=== PATIENT | male | born 1960 | race African-American/Black ===

== ENCOUNTER 2021-01-19 22:56 | Emergency (ER) | payer OTHER | END 2021-01-20 00:14 | disposition left against medical advice (07) | LOC: EMS 22:56 | DX: R45.1 Restlessness and agitation (principal); F17.210 Nicotine dependence, cigarettes, uncomplicated | CPT/HCPCS: 99283 ==

== ENCOUNTER 2021-01-20 01:20 | Emergency (ER) | payer OTHER ==
[~2021-01-20] VITALS: Ht 190.5 cm; Wt 85.0 kg
[2021-01-20 01:40] LABS: GLUCOSE,POINT OF CARE 118 MG/DL (70-110)
[2021-01-20] MEDS ORDERED: ACETAMINOPHEN 500 MG TABLET PO ONE (02:30)
[2021-01-20 03:15] VITALS: BP 155/114
== END 2021-01-20 03:45 | disposition home or self-care (01) ==
LOC: EMS 01:23
DX: S43.401A Unspecified sprain of right shoulder joint, initial encounter (principal); F17.210 Nicotine dependence, cigarettes, uncomplicated; Y35.811A Legal intervention involving manhandling, law enforcement official injured, initial encounter; Y93.89 Activity, other specified; Y92.89 Other specified places as the place of occurrence of the external cause; Y99.8 Other external cause status
CPT/HCPCS: 99283